=== PATIENT | male | born 1955 | race Caucasian/White ===

== ENCOUNTER 2022-06-06 07:07 | Inpatient (IN) | payer MEDICARE, OTHER ==
[2022-05-30 15:37] LABS: CLARITY,URINE SLIGHTLY CLOUDY (Clear); COLOR,URINE YELLOW (Yellow); GLUCOSE, URINE NEGATIVE (Neg); KETONES,URINE NEGATIVE (Neg); LEUKOCYTE ESTERASE ,URINE NEGATIVE (Neg); NITRITES, URINE NEGATIVE (Neg); OCCULT BLOOD,URINE NEGATIVE (Neg); PROTEIN,URINE NEGATIVE (Neg); UROBILINOGEN,URINE 0.2 E.U/dL (0.2-1.0)
[2022-05-30 15:40] LABS: BASOPHILS % (AUTO) 0.1 % (0-1); EOSINOPHILS # (AUTO) 0.1 X10'3 (0-0.9); EOSINOPHILS % (AUTO) 0.8 % (0-6); LYMPHOCYTES # (AUTO) 2.2 X10'3 (1.1-4.8); LYMPHOCYTES % (AUTO) 26.2 % (21-51); MEAN CORPUSCULAR HEMOGLOBIN 31.2 PG (27.0-31.0); MEAN CORPUSCULAR HGB CONC 34.4 g/dL (33.0-36.5); MEAN CORPUSCULAR VOLUME 90.7 FL (78-98); MEAN PLATELET VOLUME 7.5 FL (7.4-10.4); MONOCYTES # (AUTO) 0.9 X10'3 (0-0.9); MONOCYTES % (AUTO) 10.4 % (2-12); NEUTROPHILS # (AUTO) 5.2 X10'3 (1.8-7.7); NEUTROPHILS % (AUTO) 62.5 % (42-75); PRE OP HEMOGLOBIN 14.5 g/dL (14.0-17.9); PRE OP PLATELET COUNT 258 X10'3 (140-440); RED BLOOD COUNT 4.63 X10'6 (4.70-6.10); RED CELL DISTRIBUTION WIDTH 13.4 % (11.5-14.5)
[2022-05-30 15:44] LABS: UA COLLECTION TYPE CLN CATCH MIDSTREAM
[2022-05-30 15:45] LABS: MUCUS STRANDS MANY /LPF (Neg); SQUAMOUS EPITHELIAL CELL,UR FEW /LPF (FEW)
[2022-05-30 15:46] LABS: HYALINE CASTS 0-3 /LPF (NEGATIVE)
[2022-05-30 15:47] LABS: BACTERIA,URINE 1+ /HPF (Neg); RBC,URINE 0-2 /HPF (0-2)
[2022-05-30 15:50] LABS: ALBUMIN/GLOBULIN RATIO 1.1 (1.1-1.5); ALKALINE PHOSPHATASE 61 IU/L (46-116); BLOOD UREA NITROGEN 18 MG/DL (7-18); BUN/CREATININE RATIO 17.5 (5.4-32.0); CHLORIDE 106 MMOL/L (99-107); CREATININE 1.03 MG/DL (0.60-1.10); PRE OP ALT 28 U/L (30-65); PRE OP ANION GAP 8 (8-16); PRE OP AST 20 U/L (10-37); PRE OP BILIRUB, TOTAL 0.3 MG/DL (0.0-1.0); PRE OP GLUCOSE 117 MG/DL (70-104); PRE OP POTASSIUM 4.2 MMOL/L (3.4-5.1); PRE OP SODIUM 140 MMOL/L (135-145); TOTAL CARBON DIOXIDE 25.9 MMOL/L (24-32); TOTAL PROTEIN 7.7 G/DL (6.4-8.2); eGFR 72 ML/MIN
[2022-06-06] VITALS (18 sets, daily range): BP systolic 92–139; BP diastolic 48–86
[~2022-06-06] VITALS: Ht 165.1 cm; Wt 79.8 kg
[~2022-06-06 07:07] MED LIST: FLUO-81 PO; HYDROmorphone 1 mg/ml syringe IV PRN; HYDROmorphone inj. 0.5 MG/0.5 ML DISP.SYRIN IV PRN; IBUP-1594 PO; LISI20TA28 PO; ROPIVAcaine 0.5% (5mg/ml) 30ml vial ONE; ROSU20TA2 PO; UBID200C18 PO; acetaminophen 325mg tablet PO ONE; acetaminophen 325mg tablet PO PRN; bisacodyl 10mg suppository rectal RC PRN; ceFAZolin inj. 2,000 MG in dextrose 5%-water 100 ML IV ONE; celeCOXIB 100mg capsule PO ONE; cloNIDine hcl/PF 100mcg/ml inj ONE; diphenhydrAMINE 25mg capsule PO PRN; epiNEPHrine 1 mg/ml inj ONE; famotidine 20mg tablet PO ONE; gabapentin 300mg capsule PO ONE; magnesium hydroxide 30ml (MOM) UD suspension PO PRN; metoclopramide 5 mg/ml inj IV ONE; naloxone 0.4 mg/ml inj IV PRN; ondansetron/PF 4mg/2ml inj IV PRN; oxyCODONE SR 10mg (sust. release) tab -2 tabs (20mg) PO ONE; oxyCODONE/APAP 10/325mg tablet PO PRN; tranexamic acid inj. 1,000 MG in normal saline 100ml IV soln 90 ML IV ONE; vancomycin 1,000mg inj ONE; vancomycin 1,500 MG in NS 300ml IV soln IV ONE
--- NOTE | 2022-06-06 07:50 | NUR ---
CSM: PEDAL PULSES PRESENT AND MARKED. PATIENT EDUCATION PAMPHLET. HIS PHYSICIAN DID NOT ORDER THE MUPIROCIN CREAM. EDUCATED PATIENT ON THE USE OF THE INCENTIVE SPIROMETER AND ITS IMPORTANCE
[2022-06-06] MEDS: gabapentin 300mg capsule PO SCH ×3 (08:00→21:21)
[2022-06-06] MEDS: ringers solution, lacted 1,000 ML IV SCH ×2 (08:37→15:24)
[2022-06-06] MEDS ORDERED: MIDAZolam 1 MG/ML 5ML VIAL ONE (10:45)
[2022-06-06] MEDS ORDERED: fentaNYL/PF 50MCG/1 ML 2ML syringe ONE (10:45)
[2022-06-06] MEDS ORDERED: propofol inj 20 ML IV ONE (10:45)
[2022-06-06] MEDS ORDERED: ROPIVAcaine 0.2%/PF PUMP/bolus 545 ML ADDCANAL SCH (11:40)
[2022-06-06] MEDS ORDERED: ROPIVAcaine 0.2% (10 MG/5 ML) BOLUS INJECTION ADDCANAL PRN (11:40)
[2022-06-06] MEDS ORDERED: proCHLORperazine 10 MG/2 ml inj IV PRN (11:40)
[2022-06-06] MEDS ORDERED: morphine 2 MG/ML inj. syringe IV PRN (11:40)
[2022-06-06] MEDS ORDERED: ringers solution, lacted 1,000 ML IV SCH (11:40)
[2022-06-06] MEDS ORDERED: ondansetron/PF 4mg/2ml inj IV PRN (11:40)
[2022-06-06] MEDS ORDERED: meperidine/PF 25mg/ml syringe IV PRN ×3 (11:40)
[2022-06-06] MEDS ORDERED: morphine 4 MG/ML inj SYRINge IV PRN (11:40)
[2022-06-06] MEDS: potassium cl 20mEq in 1/2 NS 1,000 ML IV SCH (12:00)
[2022-06-06] MEDS ORDERED: tranexamic acid inj. 800 MG in normal saline 100ml IV soln 92 ML IV ONE ×2 (12:00→16:00)
[2022-06-06] MEDS ORDERED: ROPIVAcaine 0.5% (5mg/ml) 30ml vial IJ ONE (12:08)
[2022-06-06] MEDS ORDERED: cloNIDine hcl/PF 100mcg/ml inj IJ ONE (12:10)
[2022-06-06] MEDS ORDERED: ketorolac trometh. 30mg/ml inj. IU ONE (12:12)
[2022-06-06] MEDS ORDERED: ROPIVAcaine 0.5% (5mg/ml) 30ml vial ONE (12:14)
[2022-06-06] MEDS ORDERED: epiNEPHrine 1 mg/ml inj IU ONE (12:17)
--- NOTE | 2022-06-06 12:49 | NUR ---
Received from OR via ORTHO BED , accompanied by Anesthesiologist CARA and report given by Anesthesiolgist. PATIENT WITH 20G PIV IN RIGHT UE RUNNING LR AT 100. PATIENT WITH ON Q NERVE BLOCK SITE TO RIGHT LE. KNEE WRAP AND POWDER PACK PRESENT. + DP PRESENT. Addendum: 06/06/22 at 1316 by Leonardo Burns RN, RN Amended: Links added.
--- NOTE | 2022-06-06 14:29 | NUR ---
CARE OF PATIENT AND REPORT HAS BEEN CALLED. ALL QUESTIONS ANSWERED TO ACCEPTING RN. PATIENT HAS MET ALL CRITERIA FOR TRANSFER TO THE ORTHO FLOOR. VSS. DRESSINGS INTACT. BED LOW, CALL LIGHT PRESENT AND 2 RAILS UP. RN PRESENT TO ACCEPT CARE OF PATIENT. 2 BAGS OF BELONGINGS SENT WITH PATIENT AND PLACED AT BEDSIDE OF 4014A Addendum: 06/06/22 at 1444 by Leonardo Burns RN RN Amended: Links added.
--- NOTE | 2022-06-06 14:35 | NUR ---
Received Pt from recovery via bed. Oriented to room and post op POC. Spouse at bedside, both verbalize understanding.
[2022-06-06] MEDS: ceFAZolin/D5W- 1GM premix 50 ML IV SCH (17:28)
--- NOTE | 2022-06-06 18:56 | NUR ---
Problems reprioritized. Patient report given, questions answered & plan of care reviewed with Britney RN.
[2022-06-06] MEDS ORDERED: vancomycin/NS 1 GM ADD-VANTAGE 250 ML IV SCH (20:00)
[2022-06-06] MEDS ORDERED: FLUoxetine 10mg capsule PO SCH (21:00)
[2022-06-06] MEDS ORDERED: sennosides 8.6mg tablet PO SCH (21:00)
[2022-06-06] MEDS ORDERED: atorvastatin 20mg tablet PO SCH (21:00)
[2022-06-06] MEDS ORDERED: lisinopril 20mg tablet PO SCH (21:00)
[2022-06-07] MEDS: ceFAZolin/D5W- 1GM premix 50 ML IV SCH (00:06)
[2022-06-07 02:00] VITALS: BP 115/60
[2022-06-07] MEDS: potassium cl 20mEq in 1/2 NS 1,000 ML IV SCH ×2 (04:00)
[2022-06-07 06:00] VITALS: BP 107/63
--- NOTE | 2022-06-07 06:30 | NUR ---
Patient in room ORTHO 4014. I have received report from Pat and had the opportunity to ask questions and assume patient care.
[2022-06-07] MEDS: gabapentin 300mg capsule PO SCH (07:26)
[2022-06-07 07:34] LABS: BASOPHILS % (AUTO) 0.2 % (0-1); EOSINOPHILS # (AUTO) 0.2 X10'3 (0-0.9); EOSINOPHILS % (AUTO) 1.8 % (0-6); HEMATOCRIT 36.7 % (42.0-52.0); HEMOGLOBIN 12.4 g/dl (14.0-17.9); LYMPHOCYTES # (AUTO) 1.7 X10'3 (1.1-4.8); LYMPHOCYTES % (AUTO) 18.6 % (21-51); MEAN CORPUSCULAR HGB CONC 33.8 g/dL (33.0-36.5); MEAN CORPUSCULAR VOLUME 91.7 FL (78-98); MEAN PLATELET VOLUME 7.6 FL (7.4-10.4); MONOCYTES % (AUTO) 11.2 % (2-12); NEUTROPHILS # (AUTO) 6.2 X10'3 (1.8-7.7); NEUTROPHILS % (AUTO) 68.2 % (42-75); PLATELET COUNT 243 X10'3 (140-440); RED BLOOD COUNT 4.01 X10'6 (4.70-6.10); RED CELL DISTRIBUTION WIDTH 13.1 % (11.5-14.5)
[2022-06-07 07:49] LABS: ANION GAP 8 (8-16); CHLORIDE 105 MMOL/L (99-107); POTASSIUM 4.5 MMOL/L (3.5-5.1); SODIUM 137 MMOL/L (135-145); TOTAL CARBON DIOXIDE 24.2 MMOL/L (24-32)
[2022-06-07] MEDS ORDERED: multivitamins, therapeutics tablet PO SCH (08:00)
[2022-06-07] MEDS ORDERED: ascorbic acid 500mg tablet PO SCH (08:00)
[2022-06-07] MEDS ORDERED: aspirin 325mg tablet PO SCH (08:30)
--- NOTE | 2022-06-07 09:40 | NUR ---
Reviewed discharge instructions with pt and spouse. Pt verbalized understanding. Pt is alert, oriented and ready to discharge home. All of patient's belongings were returned to pt. Reviewed On-Q removal with patient. Pt was wheeled downstairs to be driven home by his spouse.
--- NOTE | 2022-06-07 10:16 | NUR ---
Joint surgery consult: Pt s/p R knee surgery this admit per EMR. Pt discharged prior to RD visit this AM; written high protein diet ed w/ RD contact information mailed to pt home address provided in EMR. Addendum: 06/07/22 at [address] Amended: Links added.
[2022-06-07] MEDS ORDERED: celeCOXIB 100mg capsule PO SCH (20:00)
== END 2022-06-07 09:30 | disposition home or self-care (01) | DRG 470 ==
LOC: PAS 07:07 → ORTHO 4S 07:08
PROVIDERS: ADMIT Orthopaedic Surgery; ATTEND Orthopaedic Surgery
PROC: 0SRC0J9 Replacement of Right Knee Joint with Synthetic Substitute, Cemented, Open Approach (ICD-10-PCS; principal; 2022-06-06 10:56)
DX: M17.11 Unilateral primary osteoarthritis, right knee (principal); Z79.899 Other long term (current) drug therapy
CPT/HCPCS: 36415; 73560; 80051; 80053; 81001; 82948; 85025; 86885; 86900; 86901; 87081; 87088; 87811; 93005; 97116; 97161; 97530; A4215; A7000; C1713; C1776; G0378; J0171; J0690; J0735; J1885; J2250; J2704; J2765; J2795; J3010; J3370; J3480; J3490; J7040; J7060; J7120